=== PATIENT | male | born 1955 | race African-American/Black ===

== ENCOUNTER 2020-01-17 16:42 | Inpatient (IN) | payer MEDICAID ==
[~2020-01-17] VITALS: Ht 182.9 cm; Wt 73.7 kg
[2020-01-17] MEDS ORDERED: AMLO5TAB88 PO (17:09)
[2020-01-17] MEDS ORDERED: LOSA50TA41 PO (17:09)
[2020-01-17] MEDS ORDERED: HYDR100T26 PO (17:09)
[2020-01-17 17:52] LABS: BASOPHILS % 0.5 % (0.0-2.0); CHLORIDE 105 mEq/L (98-107); EOSINOPHILS % 1.3 % (0.0-5.0); HEMATOCRIT. 43.3 % (42.0-52.0); HEMOGLOBIN. 14.4 g/dL (14.0-18.0); LYMPHOCYTES % 28.8 % (20.0-50.0); MEAN CORPUSCULAR HEMOGLOBIN 30.2 pg (28.0-32.0); MEAN PLATELET VOLUME 8.5 fl (7.4-10.4); MONOCYTES % 9.2 % (2.0-8.0); NEUTROPHILS % 60.2 % (40.0-76.0); PLATELET 256 x1000/uL (130-400); RED BLOOD CELL COUNT 4.76 mill/uL (4.7-6.1); RED CELL DISTRIBUTION WIDTH 14.9 % (11.6-14.6)
[2020-01-17 17:56] LABS: ETHANOL BLOOD < 10 mg/dL
[2020-01-17 17:58] LABS: PROTHROMBIN TIME 10.7 sec (9.6-11.0)
[2020-01-17 17:59] LABS: LDL CHOLESTEROL 105 mg/dL (5-100)
[2020-01-17 18:32] LABS: CLARITY URINE CLOUDY (CLEAR); COLOR URINE YELLOW (YELLOW); KETONES URINE TRACE (NEGATIVE); LEUKOCYTE ESTERASE URINE NEGATIVE (NEGATIVE); NITRITE URINE NEGATIVE (NEGATIVE); OCCULT BLOOD URINE NEGATIVE (NEGATIVE); PROTEIN URINE NEGATIVE (NEGATIVE); SPECIFIC GRAVITY URINE 1.032 (1.005-1.030)
[2020-01-17 18:46] LABS: *AMPHETAMINES SCREEN URINE NEGATIVE (NEGATIVE); *BARBITURATES SCREEN URINE NEGATIVE (NEGATIVE); *BENZODIAZEPINES SCREEN URINE NEGATIVE (NEGATIVE); *COCAINE SCREEN URINE PRESUMTIVE POSITIVE (NEGATIVE); METHADONE URINE SCREEN NEGATIVE (NEGATIVE); OPIATES URINE SCREEN NEGATIVE (NEGATIVE)
[2020-01-17 18:47] LABS: CANNABINOID URINE SCREEN NEGATIVE (NEGATIVE); PHENCYCLIDINE URINE SCREEN NEGATIVE (NEGATIVE)
[2020-01-17] MEDS ORDERED: LORAZEPAM 2MG/ML CPJ IV PRN (19:45)
[2020-01-17] MEDS ORDERED: DIPHENHYDRAMINE 50MG/ML VIAL IV PRN (19:45)
[2020-01-17] MEDS ORDERED: MAGNESIUM/ALUMINUM HYDROXIDE/SIMETHICONE 30ML UDC PO PRN (19:45)
[2020-01-17] MEDS ORDERED: MORPHINE SULFATE 2 MG/ML CPJ (NOT FOR IM USE) IV PRN (19:45)
[2020-01-17] MEDS ORDERED: DOCUSATE SODIUM 100MG CAPSULE PO PRN (19:45)
[2020-01-17] MEDS ORDERED: ONDANSETRON HCL 4MG/2ML INJ IV PRN (19:45)
[2020-01-17] MEDS ORDERED: HYDROCODONE/ACETAMINOPHEN 10/325MG TABLET PO PRN (19:45)
[2020-01-17] MEDS ORDERED: GUAIFENESIN 200MG/10ML SUGAR FREE UDC PO PRN (19:45)
[2020-01-17] MEDS ORDERED: IPRATROPIUM/ALBUTEROL 0.5-3(2.5)MG/3ML NEB HHN PRN (19:45)
[2020-01-17] MEDS ORDERED: CEFTRIAXONE 1 G PREMIX 50 ML IV NR (20:00)
[2020-01-17] MEDS: CLONIDINE 0.1MG TABLET PO PRN (20:31)
[2020-01-17] MEDS: ASPIRIN 81MG EC TABLET PO SCH (20:44)
[2020-01-17] MEDS ORDERED: IOHEXOL-350 100 ML BOTTLE ONE (22:55)
[2020-01-17 23:33] VITALS: BP 166/105
[2020-01-17 23:40] VITALS: BP 157/98
[2020-01-17 23:44] VITALS: BP 157/98
[2020-01-18] VITALS (13 sets, daily range): BP systolic 118–164; BP diastolic 74–109
[2020-01-18] MEDS: SODIUM CHLORIDE 0.9% INJ 3ML FLUSH IVF SCH ×4 (01:41→21:57)
[2020-01-18] MEDS: ENOXAPARIN 40MG/0.4ML SYR SUBCUT SCH ×2 (01:42→20:23)
[2020-01-18 07:06] LABS: BASOPHILS % 0.6 % (0.0-2.0); EOSINOPHILS % 3.2 % (0.0-5.0); HEMATOCRIT. 40.7 % (42.0-52.0); HEMOGLOBIN. 13.9 g/dL (14.0-18.0); LYMPHOCYTES % 46.9 % (20.0-50.0); MEAN CORPUSCULAR HEMOGLOBIN 31.1 pg (28.0-32.0); MEAN CORPUSCULAR VOLUME 91.1 fL (80.0-94.0); MEAN PLATELET VOLUME 8.3 fl (7.4-10.4); MONOCYTES % 10.9 % (2.0-8.0); NEUTROPHILS % 38.4 % (40.0-76.0); PLATELET 228 x1000/uL (130-400); RED BLOOD CELL COUNT 4.47 mill/uL (4.7-6.1); RED CELL DISTRIBUTION WIDTH 15.4 % (11.6-14.6)
[2020-01-18 07:11] LABS: CHLORIDE 106 mEq/L (98-107)
[2020-01-18 07:23] LABS: CREATINE KINASE 65 IU/L (39-308)
[2020-01-18 07:26] LABS: CREATINE KINASE MB FRACTION 5.9 ng/mL (0.5-3.6)
[2020-01-18] MEDS: ASPIRIN 81MG EC TABLET PO SCH (09:17)
[2020-01-18] MEDS: HYDRALAZINE 20MG/ML VIAL IV PRN ×2 (09:30→18:24)
[2020-01-18 14:03] LABS: T4 FREE 0.96 ng/dL (0.76-1.46)
[2020-01-18 16:15] LABS: CREATINE KINASE MB FRACTION 5.3 ng/mL (0.5-3.6)
[2020-01-18] MEDS: CLONIDINE 0.1MG TABLET PO PRN (20:23)
[2020-01-18 23:42] LABS: CREATINE KINASE MB FRACTION 4.4 ng/mL (0.5-3.6)
[2020-01-19] VITALS (7 sets, daily range): BP systolic 124–158; BP diastolic 77–96
[2020-01-19] MEDS: SODIUM CHLORIDE 0.9% INJ 3ML FLUSH IVF SCH ×3 (06:43→23:30)
[2020-01-19 08:11] LABS: CREATINE KINASE MB FRACTION 4.3 ng/mL (0.5-3.6)
[2020-01-19] MEDS: ASPIRIN 81MG EC TABLET PO SCH (09:38)
[2020-01-19] MEDS: CLONIDINE 0.1MG TABLET PO PRN (18:19)
[2020-01-19] MEDS: ENOXAPARIN 40MG/0.4ML SYR SUBCUT SCH (21:40)
[2020-01-19] MEDS: ATORVASTATIN CALCIUM 20MG TABLET PO SCH (21:40)
[2020-01-20] VITALS (8 sets, daily range): BP systolic 146–165; BP diastolic 73–100
[2020-01-20] MEDS: SODIUM CHLORIDE 0.9% INJ 3ML FLUSH IVF SCH ×3 (06:29→21:15)
[2020-01-20] MEDS: ASPIRIN 81MG EC TABLET PO SCH (09:13)
[2020-01-20] MEDS: HYDRALAZINE 20MG/ML VIAL IV PRN (12:21)
[2020-01-20] MEDS: CLONIDINE 0.1MG TABLET PO PRN ×2 (12:25→21:14)
[2020-01-20] MEDS: ACETAMINOPHEN 325MG TABLET PO PRN (21:13)
[2020-01-20] MEDS: ENOXAPARIN 40MG/0.4ML SYR SUBCUT SCH (21:14)
[2020-01-20] MEDS: ATORVASTATIN CALCIUM 20MG TABLET PO SCH (21:14)
[2020-01-20] MEDS ORDERED: HYDRALAZINE 10 MG in SODIUM CHLORIDE 0.9% 49.5 ML IV PRN (23:45)
[2020-01-21] VITALS: BP 141/90
[2020-01-21 04:00] VITALS: BP 136/86
[2020-01-21] MEDS: SODIUM CHLORIDE 0.9% INJ 3ML FLUSH IVF SCH ×3 (05:38→22:34)
[2020-01-21 08:00] VITALS: BP 156/96
[2020-01-21] MEDS: ASPIRIN 81MG EC TABLET PO SCH (08:47)
[2020-01-21] MEDS: CLONIDINE 0.1MG TABLET PO PRN (08:49)
[2020-01-21 12:00] VITALS: BP 138/88
[2020-01-21 16:00] VITALS: BP 150/93
[2020-01-21 20:00] VITALS: BP 140/94
[2020-01-21] MEDS: ENOXAPARIN 40MG/0.4ML SYR SUBCUT SCH (21:11)
[2020-01-21] MEDS: ATORVASTATIN CALCIUM 20MG TABLET PO SCH (21:11)
[2020-01-22] VITALS: BP 138/87
[2020-01-22 04:00] VITALS: BP 159/96
[2020-01-22] MEDS: SODIUM CHLORIDE 0.9% INJ 3ML FLUSH IVF SCH ×3 (06:31→21:17)
[2020-01-22 08:00] VITALS: BP 159/90
[2020-01-22] MEDS: ASPIRIN 81MG EC TABLET PO SCH (08:20)
[2020-01-22 12:00] VITALS: BP 156/98
[2020-01-22] MEDS: CLONIDINE 0.1MG TABLET PO PRN (12:19)
[2020-01-22 16:00] VITALS: BP 156/90
[2020-01-22] MEDS: CLONIDINE 0.3MG TABLET PO PRN (17:48)
[2020-01-22 20:00] VITALS: BP 136/80
[2020-01-22] MEDS: ATORVASTATIN CALCIUM 20MG TABLET PO SCH (21:17)
[2020-01-22] MEDS: ENOXAPARIN 40MG/0.4ML SYR SUBCUT SCH (21:17)
[2020-01-23] VITALS: BP 129/72
[2020-01-23 04:00] VITALS: BP 144/78
[2020-01-23] MEDS: SODIUM CHLORIDE 0.9% INJ 3ML FLUSH IVF SCH ×3 (05:20→20:36)
[2020-01-23 08:00] VITALS: BP 145/94
[2020-01-23] MEDS: ASPIRIN 81MG EC TABLET PO SCH (09:12)
[2020-01-23 12:00] VITALS: BP 153/91
[2020-01-23 16:00] VITALS: BP 144/93
[2020-01-23 20:00] VITALS: BP 111/45
[2020-01-23] MEDS: ATORVASTATIN CALCIUM 20MG TABLET PO SCH (20:24)
[2020-01-23] MEDS: ENOXAPARIN 40MG/0.4ML SYR SUBCUT SCH (20:24)
[2020-01-24] VITALS: BP 169/98
[2020-01-24] MEDS: CLONIDINE 0.3MG TABLET PO PRN (00:08)
[2020-01-24 04:00] VITALS: BP 148/88
[2020-01-24] MEDS: SODIUM CHLORIDE 0.9% INJ 3ML FLUSH IVF SCH ×3 (05:57→21:12)
[2020-01-24 08:00] VITALS: BP 129/72
[2020-01-24] MEDS: ASPIRIN 81MG EC TABLET PO SCH (09:30)
[2020-01-24] MEDS: AMLODIPINE 10MG TABLET PO SCH (09:30)
[2020-01-24 12:00] VITALS: BP 136/81
[2020-01-24] MEDS: HYDRALAZINE HCL 50MG TABLET PO SCH ×2 (14:52→21:11)
[2020-01-24 16:00] VITALS: BP 142/84
[2020-01-24] MEDS: ACETAMINOPHEN 325MG TABLET PO PRN (17:54)
[2020-01-24 20:00] VITALS: BP 152/94
[2020-01-24] MEDS: ATORVASTATIN CALCIUM 20MG TABLET PO SCH (21:12)
[2020-01-24] MEDS: ENOXAPARIN 40MG/0.4ML SYR SUBCUT SCH (21:12)
[2020-01-25] VITALS: BP 169/96
[2020-01-25 04:00] VITALS: BP 148/90
[2020-01-25] MEDS: HYDRALAZINE HCL 50MG TABLET PO SCH ×3 (06:45→21:35)
[2020-01-25] MEDS: SODIUM CHLORIDE 0.9% INJ 3ML FLUSH IVF SCH ×2 (06:46→14:45)
[2020-01-25 08:00] VITALS: BP 153/97
[2020-01-25] MEDS: ASPIRIN 81MG EC TABLET PO SCH (08:43)
[2020-01-25] MEDS: AMLODIPINE 10MG TABLET PO SCH (08:43)
[2020-01-25 09:00] VITALS: BP 144/87
[2020-01-25 17:06] LABS: A/G RATIO 0.9 (0.7-1.7); ALBUMIN 2.8 g/dL (2.9-4.4); ALPHA-1-GLOBULIN 0.2 g/dL (0.0-0.4); ALPHA-2-GLOBULIN 0.7 g/dL (0.4-1.0); BETA GLOBULIN 1.1 g/dL (0.7-1.3); GAMMA GLOBULINS 1.1 g/dL (0.4-1.8); GLOBULIN TOTAL 3.1 g/dL (2.2-3.9); M-SPIKE Not Observed g/dL (Not Observed); TOTAL PROTEIN SERUM 5.9 g/dL (6.0-8.5)
[2020-01-25 20:00] VITALS: BP 147/93
[2020-01-25] MEDS: ATORVASTATIN CALCIUM 10MG TABLET PO SCH (21:35)
[2020-01-25] MEDS: ENOXAPARIN 40MG/0.4ML SYR SUBCUT SCH (21:36)
[2020-01-26] VITALS: BP 147/88
[2020-01-26 04:00] VITALS: BP 162/94
[2020-01-26] MEDS: SODIUM CHLORIDE 0.9% INJ 3ML FLUSH IVF SCH ×2 (05:27→13:33)
[2020-01-26] MEDS: HYDRALAZINE HCL 50MG TABLET PO SCH ×3 (05:27→21:46)
[2020-01-26 08:00] VITALS: BP 123/78
[2020-01-26] MEDS: ASPIRIN 81MG EC TABLET PO SCH (09:03)
[2020-01-26] MEDS: AMLODIPINE 10MG TABLET PO SCH (09:04)
[2020-01-26 12:00] VITALS: BP 116/86
[2020-01-26 16:00] VITALS: BP 121/78
[2020-01-26 20:00] VITALS: BP 131/85
[2020-01-26] MEDS: ATORVASTATIN CALCIUM 10MG TABLET PO SCH (21:47)
[2020-01-26] MEDS: ENOXAPARIN 40MG/0.4ML SYR SUBCUT SCH (21:47)
[2020-01-27] VITALS: BP 142/95
[2020-01-27] MEDS: SODIUM CHLORIDE 0.9% INJ 3ML FLUSH IVF SCH ×4 (02:43→22:42)
[2020-01-27 04:00] VITALS: BP 129/87
[2020-01-27] MEDS: HYDRALAZINE HCL 50MG TABLET PO SCH ×3 (05:05→22:00)
[2020-01-27 06:25] LABS: HEMATOCRIT 43.4 % (42.0-52.0); HEMOGLOBIN 14.6 g/dL (14.0-18.0); MEAN CORPUSCULAR HEMOGLOBIN 30.3 pg (28.0-32.0); MEAN CORPUSCULAR VOLUME 89.9 fL (80.0-94.0); PLATELET 258 x1000/uL (130-400); RED BLOOD CELL COUNT 4.82 mill/uL (4.7-6.1); RED CELL DISTRIBUTION WIDTH 14.5 % (11.6-14.6)
[2020-01-27 06:31] LABS: CHLORIDE 106 mEq/L (98-107)
[2020-01-27 08:00] VITALS: BP 145/95
[2020-01-27] MEDS: AMLODIPINE 10MG TABLET PO SCH (08:50)
[2020-01-27] MEDS: ASPIRIN 81MG EC TABLET PO SCH (08:50)
[2020-01-27 12:00] VITALS: BP 138/86
[2020-01-27 16:00] VITALS: BP 105/71
[2020-01-27 20:00] VITALS: BP 104/83
[2020-01-27] MEDS: ENOXAPARIN 40MG/0.4ML SYR SUBCUT SCH (22:41)
[2020-01-27] MEDS: ATORVASTATIN CALCIUM 10MG TABLET PO SCH (22:42)
[2020-01-28 00:31] VITALS: BP 111/74
[2020-01-28 04:00] VITALS: BP 117/84
[2020-01-28] MEDS: HYDRALAZINE HCL 50MG TABLET PO SCH ×3 (06:15→21:50)
[2020-01-28] MEDS: SODIUM CHLORIDE 0.9% INJ 3ML FLUSH IVF SCH ×3 (06:16→21:50)
[2020-01-28 08:00] VITALS: BP 97/76
[2020-01-28] MEDS: AMLODIPINE 10MG TABLET PO SCH (08:29)
[2020-01-28] MEDS: ASPIRIN 81MG EC TABLET PO SCH (08:38)
[2020-01-28 12:00] VITALS: BP 109/84
[2020-01-28 16:00] VITALS: BP 132/93
[2020-01-28 20:00] VITALS: BP 131/89
[2020-01-28] MEDS: ATORVASTATIN CALCIUM 10MG TABLET PO SCH (21:49)
[2020-01-28] MEDS: ENOXAPARIN 40MG/0.4ML SYR SUBCUT SCH (21:51)
[2020-01-29] VITALS: BP 123/94
[2020-01-29 04:00] VITALS: BP 139/98
[2020-01-29] MEDS: HYDRALAZINE HCL 50MG TABLET PO SCH ×3 (05:13→21:11)
[2020-01-29] MEDS: SODIUM CHLORIDE 0.9% INJ 3ML FLUSH IVF SCH ×3 (05:13→21:11)
[2020-01-29 08:00] VITALS: BP 123/86
[2020-01-29] MEDS: ASPIRIN 81MG EC TABLET PO SCH (08:53)
[2020-01-29] MEDS: AMLODIPINE 10MG TABLET PO SCH (08:54)
[2020-01-29 12:00] VITALS: BP 133/93
[2020-01-29 16:00] VITALS: BP 119/78
[2020-01-29 20:00] VITALS: BP 128/89
[2020-01-29] MEDS: ATORVASTATIN CALCIUM 10MG TABLET PO SCH (21:12)
[2020-01-29] MEDS: ENOXAPARIN 40MG/0.4ML SYR SUBCUT SCH (21:14)
[2020-01-30] VITALS: BP 137/92
[2020-01-30 04:00] VITALS: BP 143/92
[2020-01-30] MEDS: HYDRALAZINE HCL 50MG TABLET PO SCH (05:48)
[2020-01-30] MEDS: SODIUM CHLORIDE 0.9% INJ 3ML FLUSH IVF SCH ×2 (05:49→13:14)
[2020-01-30 08:00] VITALS: BP 137/91
[2020-01-30] MEDS: ASPIRIN 81MG EC TABLET PO SCH (08:30)
[2020-01-30] MEDS: AMLODIPINE 10MG TABLET PO SCH (08:31)
== END 2020-01-30 13:53 | disposition home health service (06) | DRG 45 ==
LOC: ER 16:42 → EDBEDREQTM 18:33 → EDBEDREQSVC 18:33 → EDBEDREQ 18:33 → MICUSO 19:07 → EDBEDREQ 19:24 → EDBEDREQTM 19:24 → CANRESERV 22:11 → ENRESERV 22:11 → 5EST 23:30 → 5WST 01-18 22:28 → 6EST 01-20 23:40
PROVIDERS: ADMIT Internal Medicine; ATTEND Internal Medicine
DX: I63.9 Cerebral infarction, unspecified (principal); I11.9 Hypertensive heart disease without heart failure; E44.1 Mild protein-calorie malnutrition; F14.10 Cocaine abuse, uncomplicated; R26.9 Unspecified abnormalities of gait and mobility; H54.61 Unqualified visual loss, right eye, normal vision left eye; N39.0 Urinary tract infection, site not specified; Z87.891 Personal history of nicotine dependence; Z91.19 Patient's noncompliance with other medical treatment and regimen; Z91.14 Patient's other noncompliance with medication regimen; Z79.899 Other long term (current) drug therapy; Z03.818 Encounter for observation for suspected exposure to other biological agents ruled out
CPT/HCPCS: 36415; 70496; 70498; 70551; 71045; 80048; 80053; 80061; 80076; 80305; 80320; 81003; 82550; 82553; 82962; 83036; 83721; 83880; 84155; 84165; 84439; 84443; 84484; 85025; 85027; 85379; 93005; 93306; 93880; 93970; 97116; 97162; 97530; 99291; J0360; J0696; J1650; Q9967; G0480; U0003-CS